=== PATIENT | female | born 1995 | race Caucasian/White ===

== ENCOUNTER 2023-10-18 07:17 | Emergency (ER) | payer BC, SELFPAY ==
[2023-10-18 07:29] VITALS: BP 122/89; PULSE 93; RESP 18; TEMP 37.1; O2SAT 99
--- NOTE | 2023-10-18 07:48 | ED.GENADULT ---
HPI - General Adult General Chief complaint: Nausea/Vomiting Stated complaint: nausea, vomiting Time Seen by Provider: 10/18/23 07:29 History of Present Illness HPI narrative: Patient is a 20-year-old female that last night 11 got sick with nausea vomiting diarrhea. 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 She requests a test for that. She has the mild its sore throat body aches seems stomach upset from vomiting. She is not her last menstrual period was a few days ago. She is got no allergies to medication, is generally quite healthy. She reports her mom feels similar symptoms. No chest pain, no shortness of breath, no skin rashes, no nuchal rigidity. Related Data Previous Rx's Medication Instructions Recorded ondansetron HCl 4 mg tablet 4 mg PO DAILY PRN nausea and 10/18/23 vomiting 3 days #14 tabs Allergies Allergy/AdvReac Type Severity Reaction Status Date / Time No Known Drug Allergies Allergy Verified 10/18/23 07:29 Review of Systems Status of ROS: Reports: 6 or more systems reviewed and unremarkable except as noted in History and below Exam Narrative: Exam Narrative: Objective: Vital signs unremarkable she is afebrile In no apparent distress Alert orient x3 HEENT shows no dryness of the mucous membranes of the mouth Neck is supple Chest clear Heart Reg without murmur Abdomen benign soft nontender mild epigastric tenderness but no rebound no palpable mass Extremities are no edema neurologic nonfocal good peripheral perfusion Skin shows no skin rashes. Const: Vital Signs, click to edit/add: Vital Signs - 24 hr 10/18/23 08:34 Pulse Rate [Pulse Oximeter] 80 Respiratory Rate 16 Blood Pressure [Ri ght Upper Arm] 115/74 Pulse Oximetry 96 Oxygen Delivery Me thod Room Air Course Vital Signs Vital signs: Initial Vital Signs Temperature 98.8 F 10/18/23 07:29 Temperature Source Temporal Artery Scan 10/18/23 07:29 Pulse Rate 93 10/18/23 07:29 Respiratory Rate 18 10/18/23 07:29 Blood Pressure 122/89 10/18/23 07:29 Blood Pressure Mean 100 10/18/23 07:29 Pulse Oximetry 99 10/18/23 07:29 Oxygen Delivery Method Room Air 10/18/23 07:29 Vital Signs Temperature 98.8 F 10/18/23 07:29 Pulse Rate 93 10/18/23 07:29 Respiratory Rate 18 10/18/23 07:29 Blood Pressure 122/89 10/18/23 07:29 Pulse Oximetry 99 10/18/23 07:29 Oxygen Delivery Method Room Air 10/18/23 07:29 Temperature 98.8 F 10/18/23 07:29 Pulse Rate 80 10/18/23 08:34 Respiratory Rate 16 10/18/23 08:34 Blood Pressure 115/74 10/18/23 08:34 Pulse Oximetry 96 10/18/23 08:34 Oxygen Delivery Method Room Air 10/18/23 08:34 Medications Administered Medications: Discontinued Medications Generic Name Dose Route Start Last Admin Trade Name Freq PRN Reason Stop Dose Admin Sodium Chloride 1,000 mls @ 6,000 mls/hr 10/18/23 08:00 10/18/23 09:31 0.9 % Sodium Chloride 1000 Ml IV 10/18/23 08:09 Infused .Q10M CESAR Infusion Lorazepam 0.5 mg 10/18/23 07:46 10/18/23 08:38 Lorazepam 2 Mg/Ml Inj IVP 10/18/23 07:47 0.5 mg ONCE ONE Administration Ondansetron HCl 4 mg 10/18/23 07:46 10/18/23 08:39 Ondansetron 2 Mg/Ml Inj IVP 10/18/23 07:47 4 mg ONCE ONE Administration Medical Decision Making MDM Narrative Medical decision making narrative: 28-year-old female with nausea vomiting diarrhea since last night at 11:00 p.m.. At this point will rehydrate, check electrolytes, laboratory studies, will give some IV Ativan and Zofran. Disposition pending her clinical response and lab findings. Suspect this is a viral gastroenteritis given its in her family as well. Will check influenza COVID RSV as well. Addendum 9:28 a.m.: The patient feels better, lab studies look reassuring, viral studies are negative. Patient will be sent 0 months as Zofran as needed for home, fluids rest Tylenol as needed. Recheck with regular doctor next couple of days not improving changes concerns worsening return to the ED. Lab Data Labs: Lab Results 10/18/23 Range/Units 08:20 WBC 10.24 (4.50-11.00) K/uL RBC 4.94 (4.00-5.20) m/uL Hgb 14.3 (12.0-16.0) gm/dL Hct 42.7 (33.0-51.0) % MCV 86 (80-100) fL MCH 29 (26-34) pg MCHC 34 (32-36) gm/dL RDW Coeff of Yajaira 13.0 (11.5-15.5) % Plt Count 375 (140-440) K/uL Neut % (Auto) 87.5 H (42.0-72.0) % Lymph % (Auto) 8.4 L (20-44) % [place] % (Auto) 3.0 (0.0-11.0) % Eos % (Auto) 0.3 (0.0-7.0) % Baso % (Auto) 0.6 (0.0-3.0) % Neut # (Auto) 9.00 H (1.7-7.0) K/uL Lymph # (Auto) 0.90 (0.90-2.90) K/uL [place] # (Auto) 0.30 (0.00-0.90) K/UL Eos # (Auto) 0.03 (0.00-0.50) K/uL Baso # (Auto) 0.06 (0.00-0.30) K/uL Abs Immat Gran (auto) 0.02 (0.00-0.30) K/uL Imm/Tot Granulo (auto) 0.2 % Sodium 139 (135-149) mmol/L Potassium 3.8 (3.6-5.1) mmol/L Chloride 105 (96-114) mmol/L Carbon Dioxide 23 (20-32) mmol/L Anion Gap 11 (7-15) mEq/L BUN 17 (5-24) mg/dL Creatinine 0.7 (0.5-1.5) mg/dL Estimated Creat Clear 103.32 Estimated GFR 121 ml/min Glucose 108 (60-115) mg/dL Calcium 10.0 (8.4-10.6) mg/dL Total Bilirubin 0.6 (0.1-1.5) mg/dL Direct Bilirubin 0.2 (0.0-0.5) mg/dL AST 20 (12-35) U/L ALT 19 (4-35) U/L Alkaline Phosphatase 66 (40-150) U/L C-Reactive Protein < 0.5 L (0.5-1.0) mg/dL Total Protein 8.0 (6.0-8.3) g/dL Albumin 4.7 (3.3-5.0) g/dL Amylase 90 H (18-89) U/L HCG, Qual Negative (Negative) SARS-CoV-2 (PCR) Negative SARS-CoV-2 (Negative) Influenza Type A (PCR) Negative PCR FLU A (Negative) Influenza Type B (PCR) Negative PCR FLU B (Negative) RSV (PCR) Negative PCR RSV (Negative) Discharge Plan Discharge Clinical Impression: Nausea vomiting and diarrhea Patient Disposition: Home w/ Parent or Adult Condition: Improved Additional Instructions: Rest, fluids, light diet, Tylenol as needed. Will send home with some Zofran for nausea control if needed. Recheck with regular doctor in 2-3 days not improving changes concerns worsening return to ED. Activity Level: Light activity Discharge Diet: Full Liquid Diet Detail: Advance diet as tolerated Prescriptions: New ondansetron HCl 4 mg tablet 4 mg PO DAILY PRN (Reason: nausea and vomiting) 3 Days Qty: 14 0RF Stand Alone Forms: [place] Info Instructions
[2023-10-18 08:34] VITALS: BP 115/74; PULSE 80; RESP 16; O2SAT 96
[2023-10-18] MEDS: LORazepam 2 MG/ML inj 0.5 MG IVP (08:38)
[2023-10-18] MEDS: ONDANSETRON 2 MG/ML inj 4 MG IVP (08:39)
[2023-10-18] MEDS: 0.9 % SODIUM CHLORIDE 1000 ml 1,000 ML 6000 ML IV (08:39)
[2023-10-18 08:45] LABS: Basophils Absolute Auto 0.06 K/uL (0.00-0.30); Basophils Percent Auto 0.6 % (0.0-3.0); Eosinophils Absolute Auto 0.03 K/uL (0.00-0.50); Eosinophils Percent Auto 0.3 % (0.0-7.0); Hematocrit 42.7 % (33.0-51.0); Hemoglobin* 14.3 gm/dL (12.0-16.0); Immature Granulocytes Abs Auto 0.02 K/uL (0.00-0.30); Immature Granulocytes Pct Auto 0.2 %; Lymphocytes Percent Auto 8.4 % (20-44); Mean Corpuscular HGB Conc 34 gm/dL (32-36); Mean Corpuscular Hemoglobin 29 pg (26-34); Mean Corpuscular Volume 86 fL (80-100); Neutrophils Percent Auto 87.5 % (42.0-72.0); Platelet Count* 375 K/uL (140-440); Red Blood Count 4.94 m/uL (4.00-5.20); White Blood Count* 10.24 K/uL (4.50-11.00)
[2023-10-18 08:57] LABS: Slide Review Reflex No
[2023-10-18 09:03] LABS: Albumin* 4.7 g/dL (3.3-5.0); Chloride* 105 mmol/L (96-114); Sodium* 139 mmol/L (135-149)
[2023-10-18 09:04] LABS: Potassium* 3.8 mmol/L (3.6-5.1)
[2023-10-18 09:05] LABS: Amylase* 90 U/L (18-89)
[2023-10-18 09:06] LABS: Alkaline Phosphatase* 66 U/L (40-150); Anion Gap 11 mEq/L (7-15); Aspartate Amino Transferase* 20 U/L (12-35); Bilirubin Direct* 0.2 mg/dL (0.0-0.5); Bilirubin Total* 0.6 mg/dL (0.1-1.5); Blood Urea Nitrogen* 17 mg/dL (5-24); Carbon Dioxide* 23 mmol/L (20-32); Creatinine* 0.7 mg/dL (0.5-1.5); Est. Creatinine Clearance* 103.32; Estimated Glomerular Filt Rate 121 ml/min; Glucose* 108 mg/dL (60-115)
[2023-10-18 09:07] LABS: Alanine Aminotransferase* 19 U/L (4-35)
[2023-10-18 09:10] LABS: C Reactive Protein* < 0.5 mg/dL (0.5-1.0); HCG Qualitative Serum* Negative (Negative)
[2023-10-18 09:21] LABS: PCR FLU A Negative PCR FLU A (Negative); PCR FLU B Negative PCR FLU B (Negative); PCR RSV Negative PCR RSV (Negative); SARS PCR* Negative SARS-CoV-2 (Negative)
== END 2023-10-18 09:54 | disposition home or self-care (01) ==
LOC: ED 08:14
PROVIDERS: Emergency Provider Family Medicine
DX: R11.2 Nausea with vomiting, unspecified (principal); R19.7 Diarrhea, unspecified
CPT/HCPCS: 36415; 80048; 80076; 82150; 84703; 85025; 86140; 87631; 96374; 96375; 99283; 99284; J2060; J2405; J7030